=== PATIENT | male | born 1965 | race Caucasian/White ===

== ENCOUNTER 2016-06-14 18:25 | Emergency (ER) | payer BC ==
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
== END 2016-06-14 19:36 | disposition home or self-care (01) ==
LOC: CFTX 18:25
DX: M54.12 Radiculopathy, cervical region (principal); F17.210 Nicotine dependence, cigarettes, uncomplicated; Z88.8 Allergy status to other drugs, medicaments and biological substances
CPT/HCPCS: 72040; 99283